=== PATIENT | female | born 1975 | race Caucasian/White ===

== ENCOUNTER 2018-04-30 19:01 | Emergency (ER) | payer OTHER ==
[~2018-04-30] VITALS: Ht 167.6 cm; Wt 81.7 kg
[2018-04-30] MEDS ORDERED: TOPAMAX 25 MG T25 M1 PO (19:20)
[2018-04-30] MEDS ORDERED: PAXIL10 MG PO (19:20)
[2018-04-30] MEDS ORDERED: NOVOLOG100 UNIT/1 SUBQ (19:20)
[2018-04-30] MEDS ORDERED: LANTUS100 UNIT/M SUBQ (19:20)
[2018-04-30] MEDS ORDERED: MIRAPEX ER3 MG PO (19:21)
[2018-04-30] MEDS ORDERED: ONDANSETRON ODT4 MG PO (19:21)
[2018-04-30 19:31] LABS: URINE BILIRUBIN NEGATIVE (Negative); URINE BLOOD NEGATIVE (Negative); URINE CLARITY CLEAR; URINE COLOR YELLOW; URINE GLUCOSE-RANDOM* NEGATIVE (Negative); URINE KETONES TRACE (Negative); URINE LEUKOCYTES-REFLEX NEGATIVE (Negative); URINE NITRITE-REFLEX NEGATIVE (Negative); URINE PROTEIN (DIPSTICK) NEGATIVE (Negative); URINE SPECIFIC GRAVITY >= 1.030 (1.005-1.035); URINE UROBILINOGEN 0.2 E.U./dl (0.2-1.0)
[2018-04-30 20:58] VITALS: BP 129/72
== END 2018-04-30 20:59 | disposition home or self-care (01) ==
LOC: ER 19:01
PROVIDERS: Physician Assistant
DX: N93.8 Other specified abnormal uterine and vaginal bleeding (principal); F17.210 Nicotine dependence, cigarettes, uncomplicated; E11.9 Type 2 diabetes mellitus without complications; Z88.1 Allergy status to other antibiotic agents; Z88.6 Allergy status to analgesic agent; Z79.4 Long term (current) use of insulin